=== PATIENT | female | born 1970 | race Caucasian/White ===

== ENCOUNTER → 2019-12-20 10:45 | Outpatient (CLI) | payer MEDICARE, MEDICAID, SELFPAY ==
--- NOTE | 2019-12-20 10:48 | MM_ITS ---
PROCEDURE: MM DIG SCREENING MAMM BI W/CAD Digital Breast Tomosynthesis Included CLINICAL INDICATION: SCREENING There is no personal or family history of breast cancer. COMPARISON: [facility] DIGITAL MAMM-SCREEN BILATERAL from 07/12/2012 [facility] DIG MAMM-BILATERAL ADD VIEWS from 07/18/2012 [facility] DIG MAMM-SCREEN SHELLY from 09/03/2013 TECHNIQUE: Standard CC and MLO images and 3D Tomosynthesis was obtained. R2 CAD reviewed. FINDINGS: Moderate scattered fibroglandular densities are seen throughout both breasts. There is a benign-appearing calcification left breast. There is no suspicious lesion and no suspicious microcalcifications. IMPRESSION: Fibrofatty parenchyma with no suspicious lesions seen BI-RAD Category: 2 Benign Finding(s) FOLLOW-UP: 1YR 1 Year Follow-up (A letter has been sent to the patient regarding results of the study.) Dictated by: Dr. Zeferino Meade MD 12/24/2019 08:[address] Zeferino Meade MD in [place] 12/24/2019 08:16
== END ==
PROVIDERS: PCP Family Medicine; Visit Provider Family Medicine
DX: Z12.31 Encounter for screening mammogram for malignant neoplasm of breast (principal)
CPT/HCPCS: 77063; 77067

== ENCOUNTER → 2020-02-14 12:25 | Outpatient (CLI) | payer MEDICARE, MEDICAID, SELFPAY ==
--- NOTE | 2020-02-14 | CA_ITS ---
APPROVED REPORT Developing Machine Tender: CT Laterality: Bilateral Study Quality: Good Indications: DIZZINESS Risk Factors Hypertension: Diabetes Doppler Spectral Velocity Analysis ECA (R) 83.80/18.00 cm/s ECA (L) 78.80/15.40 cm/s dICA (R) 76.30/22.40 cm/s dICA (L) 91.80/33.40 cm/s Derrick (R) 98.00/39.70 cm/s Derrick (L) 89.90/36.00 cm/s pICA (R) 63.60/22.50 cm/s pICA (L) 51.30/19.80 cm/s dCCA (R) 78.60/21.70 cm/s dCCA (L) 89.10/29.10 cm/s pCCA (R) 125.10/22.30 cm/s pCCA (L) 108.00/22.30 cm/s Vert (R) 53.10/20.20 cm/s Vert (L) 63.40/23.10 cm/s ICA/CCA 1.30 ICA/CCA 1.00 Findings Duplex evaluation demonstrates stenosis of the right proximal internal carotid artery <20%. Duplex evaluation demonstrates stenosis of the left proximal internal carotid artery <20%. Duplex evaluation demonstrates antegrade flow of the bilateral Vertebral Arteries. Thyroid cysts noted. Conclusion Duplex evaluation demonstrates stenosis of the right proximal internal carotid artery <20%. Duplex evaluation demonstrates stenosis of the left proximal internal carotid artery <20%. Duplex evaluation demonstrates antegrade flow of the bilateral Vertebral Arteries. Thyroid cysts noted. Electronically signed by : Corey Gómez MD 02/14/2020 16:21:11
== END ==
PROVIDERS: PCP Family Medicine; Visit Provider Nurse Practitioner Family
DX: R42 Dizziness and giddiness (principal)
CPT/HCPCS: 93880

== ENCOUNTER → 2020-03-20 10:51 | Outpatient (CLI) | payer MEDICARE, MEDICAID, SELFPAY ==
--- NOTE | 2020-03-20 10:56 | US_ITS ---
PROCEDURE: US THYROID CLINICAL INDICATION: THYROID CYST COMPARISON: No exams were available for comparison FINDINGS: The right lobe is 4 x 1.4 by 1.5 cm. A 4 x 2 mm hypoechoic nodules present in the upper pole. The left lobe is 4 x 1.0 x 1.6 cm. A 5 mm cyst is present in the lower pole on the left. The isthmus is slightly thickened at 4 mm. IMPRESSION: Small bilateral thyroid nodules which are low level of suspicion for malignancy. 4 mm solid nodule in the right and 5 mm cyst on the left. Dictated by: Corey Gómez MD 03/20/2020 12:07 Corey Gómez MD in [place] 03/20/2020 12:07
== END ==
PROVIDERS: PCP Family Medicine; Visit Provider Nurse Practitioner Family
DX: E04.1 Nontoxic single thyroid nodule (principal)
CPT/HCPCS: 76536

== ENCOUNTER 2021-11-07 13:25 | Emergency (ER) | payer MEDICARE, MEDICAID, SELFPAY ==
[2021-11-07 14:00] VITALS: BP 145/82; PULSE 95; RESP 18; TEMP 37; O2SAT 96; BMI 35.0
--- NOTE | 2021-11-07 14:40 | HMH.EDUTC ---
[facility] Disposition Clinical Impression: Maxillary sinusitis, acute Qualifiers: Recurrence: non-recurrent Qualified Code(s): J01.00 - Acute maxillary sinusitis, unspecified Disposition: Home, Self-Care Condition on Discharge: Good Instructions: DI for Sinusitis Additional Instructions: Start antibiotic patient to take as ordered for a full length of time even if you feel better. Sinus infections do not get better overnight. It may take 2-3 days to notice much improvement so be sure to use conservative measures as discussed for symptoms. Flonase 1 spray each nostril daily to help with nasal congestion, sinus and ear pressure/information Increase fluids Humidifier/vaporizer as needed Tylenol and ibuprofen as needed for fever or pain. If symptoms do not improve or get worse return or be seen in the ER Follow-up with primary care this week Prescriptions: Fluticasone Propionate [Flonase 50mcg nasal spray 16gm] 1 spr NS DAILY 14 Days #9.9 ml Transmission Status: Pending to [facility] Azithromycin [Zithromax 250mg tab] 250 mg PO DIRECTED #6 tab Transmission Status: Pending to [facility] Referrals: Khurram Smith MD [Primary Care Provider] - Time of Disposition: 14:45 Medical Decision Making - Edilberto Inquiry Pt receiving controlled substance: No Vital Signs: 11/07/21 14:00 Temperature 98.6 F Temperature Source Oral Pulse Rate [Right Brachial] 95 H Respiratory Rate 18 Blood Pressure [Right Arm] 145/82 H Blood Pressure Mean [Right Arm] 103 Blood Pressure Source [Right Arm] Automatic Cuff Blood Pressure Position [Right Arm] Sitting 02 Sat by Pulse Oximetry 96 Oxygen Delivery Method Room Air [facility] HPI - General Chief complaint: Urgent Treatment Center Stated complaint: congestion Time Seen by Provider: 11/07/21 14:40 Mode of Arrival: Ambulatory Source of Information: Patient Limitations: No Limitations Description of Symptoms (Recalled from Triage Doc. by RN): PATEINT C/O CONGESTION AND SINUS PRESSURE X 1 WEEK HEENT Symptoms (Recalled from RN notes): Yes Resp Symptoms (Recalled from RN notes): No Skin Symptoms (Recalled from RN notes): No MS Symptoms (Recalled from RN notes): No Functional Status (Recalled from RN notes): WNL - History of Present Illness Provider Complaint: 51 yr old female presents for green nasal congestion,sinus pressure, sinus pain and cough since monday - Related Data Previous Rx's Medication Instructions Recorded Azithromycin [Zithromax 250mg 250 mg PO DIRECTED #6 tab 11/07/21 tab] Fluticasone Propionate [Flonase 1 spr NS DAILY 14 Days #9.9 ml 11/07/21 50mcg nasal spray 16gm] Allergies Allergy/AdvReac Type Severity Reaction Status Date / Time No Known Allergies Allergy Verified 11/07/21 14:14 - Worker's Comp Is this a Worker's Comp case?: No [facility] History - Hepatitis A Screen Attestation statement:: This patient has been screened for Hepatitis A risk factors. I have reviewed the patient's past medical history: Yes ROS Obtained: Yes Systems reviewed as appropriate & no additional complaints - Constitutional Constitutional: Reports system reviewed and no additional complaints, except as docu, Denies fever(s) - Eyes Eyes: Reports system reviewed and no additional complaints, except as docu, Denies dry eyes - ENT Ears, Nose, Mouth, and Throat: Reports system reviewed and no additional complaints, except as docu, Reports nasal congestion, Reports nasal discharge, Reports post nasal drip, Reports sinus pain, Reports sinus pressure - Cardiovascular Cardiovascular: Reports system reviewed and no additional complaints, except as docu, Denies chest pain - Respiratory Respiratory: Reports system reviewed and no additional complaints, except as docu, Reports cough - Gastrointestinal Gastrointestingal: Reports: system reviewed and no additional complaints, except as docu - Musculoskeletal Musculoskeletal: Repo
[2021-11-07 14:46] VITALS: BP 145/82; PULSE 95; RESP 18; TEMP 37; O2SAT 96
== END 2021-11-07 14:50 | disposition home or self-care (01) ==
PROVIDERS: Emergency Provider Nurse Practitioner Family; PCP Family Medicine
DX: J01.00 Acute maxillary sinusitis, unspecified (principal)
CPT/HCPCS: 99212; G0463

== ENCOUNTER → 2022-02-14 06:30 | Outpatient (CLI) | payer MEDICARE, MEDICAID, SELFPAY ==
[2022-02-14 18:47] LABS: Alanine Aminotransferase 38 U/L (12-78); Albumin Level 4.2 g/dl (3.5-5.0); Albumin/Globulin Ratio 1.6 (1.1-1.8); Alkaline Phosphatase 103 U/L (38-126); Aspartate Amino Transferase 34 U/L (14-36); Bilirubin,Total 0.3 mg/dl (0.2-1.3); Blood Urea Nitrogen 10 mg/dl (7-17); Calcium 9.9 mg/dl (8.4-10.2); Carbon Dioxide 29 mmol/L (22.0-30.0); Chloride 104 mmol/L (98-107); Chol/HDL Ratio 3.3 (1-3.5); Cholesterol 204 mg/dl (140-200); Estimated Glomerular Filt Rate 131 ml/min (>60); GFR (African American) 159 ML/MIN (>60); Globulin 2.7 g/dL (1.3-3.2); Glucose 158 mg/dl (74-100); HDL Cholesterol 61 mg/dl (40-60); Potassium 4.9 mmoL/L (3.5-5.1); Total Protein,Serum 6.9 g/dl (6.3-8.2); Triglycerides 153 mg/dl (30-150); VLDL Cholesterol 31 mg/dL (0-40)
[2022-02-14 19:18] LABS: Thyroid Stimulating Hormone 1.82 uIU/mL (0.465-4.68)
[2022-02-14 19:45] LABS: Anion Gap 11.9 mEq/L (5-15); Sodium 140 mmol/L (136-145)
[2022-02-14 20:19] LABS: Hemoglobin A1C 6.7 % (4.0-6.0)
[2022-02-18 09:46] LABS: Direct LDL Cholesterol 117 mg/dL (100-129)
== END ==
PROVIDERS: PCP Family Medicine; Visit Provider Family Medicine
DX: E11.9 Type 2 diabetes mellitus without complications (principal); I10 Essential (primary) hypertension; Z79.84 Long term (current) use of oral hypoglycemic drugs
CPT/HCPCS: 80053; 80061; 83036; 84443

== ENCOUNTER → 2022-03-30 11:57 | Outpatient (CLI) | payer MEDICARE, MEDICAID, SELFPAY ==
--- NOTE | 2022-03-30 12:01 | XR_ITS ---
FINAL REPORT CLINICAL HISTORY: Rt sided LBP x mos, NKT FINDINGS: LUMBAR SPINE AP and lateral views were obtained. There is no acute fracture or malalignment. There are minimal anterior osteophyte formations at L2-3, L3-4 and L4-5. Vertebrae are normal height. Prevertebral soft tissues are unremarkable. IMPRESSION: No acute bony abnormality. Reviewed, Interpreted and Dictated by Robbie Jones MD Transcribed by Karey Biggs Authenticated and [facility]
== END ==
PROVIDERS: PCP Family Medicine; Visit Provider Nurse Practitioner
DX: M54.50 Low back pain, unspecified (principal); M62.830 Muscle spasm of back
CPT/HCPCS: 72100

== ENCOUNTER → 2022-04-11 12:52 | Outpatient (CLI) | payer MEDICARE, MEDICAID, SELFPAY ==
--- NOTE | 2022-04-11 12:57 | US_ITS ---
FINAL REPORT CLINICAL HISTORY: survellience of thyroid nodules COMPARISON: March 20, 2020 FINDINGS: THYROID ULTRASOUND Sonographic images of the thyroid was obtained. The right lobe of the thyroid measures 4.4 x 1.6 x 1.5 cm. The left lobe of the thyroid measures 4.6 x 1.7 x 1.4 cm. There is a 4 mm cystic nodule with a small calcification, TI-RADS category 2. The isthmus measures 5 mm. IMPRESSION: Left thyroid nodule, TI-RADS 2. No recommended follow-up. Reviewed, Interpreted and Dictated by Navin Andrade III, MD Transcribed by Lynnette Flores Authenticated and [facility]
== END ==
PROVIDERS: PCP Family Medicine; Visit Provider Family Medicine
DX: E04.1 Nontoxic single thyroid nodule (principal)
CPT/HCPCS: 76536

== ENCOUNTER → 2022-09-07 09:58 | Outpatient (CLI) | payer MEDICARE, MEDICAID, SELFPAY ==
[2022-09-07 19:03] LABS: Basophils # 0.1 K/mm3 (0-0.2); Eosinophils # 0.3 K/mm3 (0.0-0.4); Eosinophils % 3.4 % (0.1-12.0); Hematocrit 42.3 % (37.0-47.0); Lymphocytes % 33.4 % (10-50); Mean Corpuscular HGB Conc 33.1 g/dL (31.8-35.4); Mean Corpuscular Hemoglobin 28.7 pg (27.0-31.2); Mean Corpuscular Volume 86.9 fl (81-99); Mean Platelet Volume 9.2 fl (7.4-10.4); Monocytes # 0.4 K/mm3 (0.1-1.0); Monocytes % 4.4 % (1.7-9.3); Neutrophils # 5.2 K/mm3 (1.8-7.8); Neutrophils % 57.9 % (37.0-80.0); Platelet Count 432 K/mm3 (142-424); Red Blood Count 4.86 M/mm3 (4.20-5.40); Red Cell Distribution Width 13.6 % (11.5-17.5); White Blood Count 8.9 K/mm3 (4.8-10.8)
[2022-09-07 19:58] LABS: Chloride 102 mmol/L (98-107); Sodium 138 mmol/L (136-145)
[2022-09-07 19:59] LABS: Potassium 4.2 mmoL/L (3.5-5.1)
[2022-09-07 20:01] LABS: Alanine Aminotransferase 32 U/L (12-78); Albumin Level 4.5 g/dl (3.5-5.0); Albumin/Globulin Ratio 1.6 (1.1-1.8); Alkaline Phosphatase 91 U/L (38-126); Anion Gap 14.2 mEq/L (5-15); Aspartate Amino Transferase 28 U/L (14-36); Bilirubin,Total 0.4 mg/dl (0.2-1.3); Blood Urea Nitrogen 12 mg/dl (7-17); Carbon Dioxide 26 mmol/L (22.0-30.0); Cholesterol 211 mg/dl (140-200); Estimated Glomerular Filt Rate 131 ml/min (>60); GFR (African American) 158 ML/MIN (>60); Globulin 2.9 g/dL (1.3-3.2); Total Protein,Serum 7.4 g/dl (6.3-8.2); Triglycerides 123 mg/dl (30-150); VLDL Cholesterol 25 mg/dL (0-40)
[2022-09-07 20:02] LABS: Calcium 9.4 mg/dl (8.4-10.2); Chol/HDL Ratio 3.2 (1-3.5); Glucose 165 mg/dl (74-100); HDL Cholesterol 65 mg/dl (40-60)
[2022-09-07 20:13] LABS: Direct LDL Cholesterol 114.69 mg/dL (100-129)
[2022-09-07 20:17] LABS: Creatinine,Urine Random 48 mg/dL (Not Estab.); Microalbumin < 6.000 mg/L (0-16.7)
[2022-09-07 20:37] LABS: 25-OH Vitamin D, Total 28.7 ng/mL (30-100)
[2022-09-07 21:05] LABS: Hemoglobin A1C 6.5 % (4.0-6.0)
[2022-09-07 21:11] LABS: Vitamin B12 522 pg/mL (239-931)
== END ==
PROVIDERS: PCP Nurse Practitioner; Visit Provider Nurse Practitioner
DX: E11.9 Type 2 diabetes mellitus without complications (principal); E78.5 Hyperlipidemia, unspecified; I10 Essential (primary) hypertension; J01.00 Acute maxillary sinusitis, unspecified; E55.9 Vitamin D deficiency, unspecified; Z79.84 Long term (current) use of oral hypoglycemic drugs
CPT/HCPCS: 80053; 80061; 82043; 82306; 82570; 82607; 83036; 85025

== ENCOUNTER 2023-02-18 12:53 | Emergency (ER) | payer MEDICARE, SELFPAY ==
[2023-02-18] VITALS (7 sets, daily range): BP systolic 146–182; BP diastolic 79–103; PULSE 74–94; RESP 16–20; TEMP 36.8–36.9; O2SAT 95–100; BMI 30.9
--- NOTE | 2023-02-18 12:46 | ECG_ITS ---
APPROVED REPORT Exam: Resting ECG HR:98 bpm ECG Measurements Heart Rate 98 AXES CO 167 P 35 QRSd 136 QRS 43 QT 341 T 27 QTc 397 Conclusion SINUS RHYTHM RIGHT BUNDLE BRANCH BLOCK [120+ ms QRS DURATION, UPRIGHT V1, 40+ ms S IN I/aVL/V4/V5/V6] ABNORMAL ECG UNCONFIRMED REPORT Electronically signed by : Raudel Mcnair MD 02/20/2023 14:06:27
--- NOTE | 2023-02-18 13:02 | XR_ITS ---
PROCEDURE INFORMATION: Exam: XR Chest Exam date and time: 02/18/2023 1:04 PM Age: 52 years old Clinical indication: Other: Chest pain in center of chest TECHNIQUE: Imaging protocol: Radiologic exam of the chest. Views: 1 view. COMPARISON: No relevant prior studies available. FINDINGS: Lungs: Unremarkable. No consolidation. Pleural spaces: Unremarkable. No pleural effusion. No pneumothorax. Heart/Mediastinum: Unremarkable. No cardiomegaly. Bones/joints: Unremarkable. IMPRESSION: No acute findings.
[2023-02-18 13:10] LABS: Basophils # 0.1 K/mm3 (0-0.2); Basophils % 0.4 % (0.1-2.0); Eosinophils # 0.3 K/mm3 (0.0-0.4); Eosinophils % 2.9 % (0.1-12.0); Hematocrit 43.8 % (37.0-47.0); Hemoglobin 15.2 g/dL (12.2-16.2); Lymphocytes # 3.5 K/mm3 (0.7-4.5); Lymphocytes % 30.5 % (10-50); Mean Corpuscular HGB Conc 34.6 g/dL (31.8-35.4); Mean Corpuscular Hemoglobin 29.9 pg (27.0-31.2); Mean Corpuscular Volume 86.4 fl (81-99); Mean Platelet Volume 6.9 fl (7.4-10.4); Monocytes # 0.4 K/mm3 (0.1-1.0); Monocytes % 3.4 % (1.7-9.3); Neutrophils # 7.1 K/mm3 (1.8-7.8); Neutrophils % 62.6 % (37.0-80.0); Platelet Count 352 K/mm3 (142-424); Red Blood Count 5.07 M/mm3 (4.20-5.40); Red Cell Distribution Width 12.9 % (11.5-17.5); White Blood Count 11.3 K/mm3 (4.8-10.8)
[2023-02-18 13:24] LABS: Alanine Aminotransferase 26 U/L (12-78); Albumin Level 5.2 g/dl (3.5-5.0); Albumin/Globulin Ratio 1.3 (1.1-1.8); Alkaline Phosphatase 96 U/L (38-126); Anion Gap 13.6 mEq/L (5-15); Aspartate Amino Transferase 30 U/L (14-36); Bilirubin,Total 0.5 mg/dl (0.2-1.3); Blood Urea Nitrogen 12 mg/dl (7-17); Calcium 10.3 mg/dl (8.4-10.2); Carbon Dioxide 28 mmol/L (22.0-30.0); Chloride 100 mmol/L (98-107); Creatinine Clearance Estimated 141 mL/min (50-200); Estimated Glomerular Filt Rate 106 ml/min (>60); GFR (African American) 128 ML/MIN (>60); Globulin 3.9 g/dL (1.3-3.2); Glucose 150 mg/dl (74-100); Potassium 3.6 mmoL/L (3.5-5.1); Sodium 138 mmol/L (136-145); Total Protein,Serum 9.1 g/dl (6.3-8.2)
[2023-02-18 13:29] LABS: D-Dimer 0.54 ug/mL (0.0-0.5)
[2023-02-18 13:37] LABS: Troponin I < 0.01 ng/ml (0.00-0.034)
--- NOTE | 2023-02-18 13:49 | CT_ITS ---
PROCEDURE INFORMATION: Exam: CTA Chest With Contrast Exam date and time: 02/18/2023 2:15 PM Age: 52 years old Clinical indication: Other: Chest pain in center of chest; Additional info: Elevated d-dimer, chest pain TECHNIQUE: Imaging protocol: Computed tomographic angiography of the chest with contrast. Exam focused on the arteries. 3D rendering (Not supervised by radiologist): MIP and/or 3D reconstructed images were created by the technologist. Radiation optimization: All CT scans at this facility use at least one of these dose optimization techniques: automated exposure control; mA and/or kV adjustment per patient size (includes targeted exams where dose is matched to clinical indication); or iterative reconstruction. Contrast material: ISOVUE; Contrast volume: 70 ml; Contrast route: INTRAVENOUS (IV); REPORTING DATA: Count of CT and Cardiac NM exams in prior 12 months: This patient has received 0 known CTs and 0 known cardiac nuclear medicine studies in the 12 months prior to the current study. COMPARISON: CR XR CHEST PORTABLE 02/18/2023 1:04 PM FINDINGS: Pulmonary arteries: There is suboptimal opacification of pulmonary arteries due to contrast bolus timing. Aorta: Regions of atherosclerotic vascular calcification involving the aortic arch. Thyroid: Mildly enlarged thyroid gland. Lungs: Bilateral ground-glass regions of opacification. Findings nonspecific and may reflect interstitial lung disease. An acute inflammatory process could not be entirely excluded. Calcified granuloma right lower lobe Pleural spaces: Unremarkable. No pneumothorax. No pleural effusion. Heart: Unremarkable. No cardiomegaly. No pericardial effusion. Coronary arteries: Coronary artery calcification. Lymph nodes: Calcified right hilar and subcarinal adenopathy. Liver: Hepatic steatosis Spleen: Evidence of prior splenic granulomatous disease. Bones/joints: Thoracic spondylosis Soft tissues: Unremarkable. IMPRESSION: 1. Bilateral ground-glass regions of opacification. Findings nonspecific and may reflect interstitial lung disease. An acute inflammatory process could not be entirely excluded. 2. No large or central pulmonary embolus. Evaluation of the peripheral pulmonary arteries is limited. 3. Evidence of prior granulomatous disease.
--- NOTE | 2023-02-18 13:59 | PC.NURSE ---
PT ASSISTED TO BR
--- NOTE | 2023-02-18 14:16 | HMH.EDGENADL ---
Discharge Plan Disposition Patient Disposition: Home, Self-Care Condition: Good Prescriptions Prescriptions: No Action Advair HFA 115-21 mcg/actuation HFA aerosol inhaler 2 inh inhalation BID Patient Comments: INHALE 2 PUFFS BY MOUTH TWICE A DAY buspirone 15 mg tablet 15 mg PO BID Qty: 180 5RF montelukast 10 mg tablet 10 mg PO DAILY Qty: 30 11RF bupropion HCl 150 mg tablet extended release 24 hr 150 mg PO DAILY Qty: 30 2RF diazepam 5 mg tablet 5 mg PO TID PRN (Reason: anxiety) Qty: 90 2RF hydrochlorothiazide 12.5 mg tablet 12.5 mg PO DAILY Qty: 30 2RF albuterol sulfate 90 mcg/actuation HFA aerosol inhaler 1 inh IH QID cholecalciferol (vitamin D3) 125 mcg (5,000 unit) tablet 125 mcg PO DAILY Qty: 30 5RF metformin 500 mg tablet extended release 24 hr See Rx Instructions .ROUTE .COMPLEX Qty: 180 1RF Dose Instruction: TAKE 1 TABLET BY MOUTH TWICE DAILY Rx Instructions: TAKE 1 TABLET BY MOUTH TWICE DAILY azithromycin 250 mg tablet See Rx Instructions PO .COMPLEX Qty: 6 0RF Rx Instructions: For 250 mg dose pack: take 500 mg today (day 1), then 250 mg for 4 days (days 2-5) PO losartan 100 mg tablet See Rx Instructions .ROUTE .COMPLEX Qty: 90 0RF Dose Instruction: TAKE ONE TABLET BY MOUTH ONCE DAILY Rx Instructions: TAKE ONE TABLET BY MOUTH ONCE DAILY meloxicam 15 mg tablet See Rx Instructions .ROUTE .COMPLEX Qty: 30 2RF Dose Instruction: TAKE 1 TABLET ORALLY ONCE DAILY Rx Instructions: TAKE 1 TABLET ORALLY ONCE DAILY Referrals Follow up/Referrals: Audra Alvarez MD [Primary Care Provider] - See instructions Activity Restrictions/Add. Instructions Additional Instructions/Restrictions: Recommend that you continue to stay hydrated and eat regularly. Recommend that you follow up with your primary care provider or return to the Emergency Department should your symptoms worsen/persist or you develop any new concerning symptoms. You can take Tylenol, ibuprofen every 6 hours as needed for pain control. Plan to follow-up with your primary care provider on Monday. Clinical Impressions Clinical Impression: Chest pain Qualifiers: Chest pain type: unspecified Qualified Code(s): R07.9 - Chest pain, unspecified Discharge ED Provider: Alexandre Cochran I General Adult HPI General Chief complaint: Chest Pain Stated complaint: CHEST PAIN Time Seen by Provider: 02/18/23 12:55 Mode of Arrival: Ambulatory Limitations: No Limitations Description of Symptoms (Recalled from ER Triage Doc. by RN): PT REPORTS INTERMITTENT CHEST PRESSURE X 2 WEEKS, RADIATES ACROSS HER CHEST AND TO HER BACK. PAIN WORSE WITH MOVEMENT. BETTER WITH REST AND MELOXICAM. History of Present Illness HPI narrative: Patient is a 52-year-old female with history of hypertension, hyperlipidemia, type 2 diabetes as well as asthma, histoplasmosis who is presenting to the emergency department with several weeks, month history of midsternal chest pressure that worsened yesterday evening. History was conducted with the patient at bedside. 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 Reports that she is always picking up her grandkids, would have waxing and waning of her symptoms. She reports it is a midsternal pressure-like sensation. She denies any change with eating, denies any associated shortness of breath, difficulty breathing wheezing, chest tightness. Patient states that her symptoms slightly worsened yesterday evening, she attempted an albuterol inhaler without improvement in symptoms. Patient took Tylenol last night with improvement in symptoms. States that rest also helps symptoms, denies exertion worsening chest pain. Reports that on prior EKGs, has a history of right bundle branch block. Related Data Home Medications Medication Instructions Recorded Confirmed albuterol santo
--- NOTE | 2023-02-18 14:18 | PC.NURSE ---
PT RETURNED FROM CT
--- NOTE | 2023-02-18 15:09 | PC.NURSE ---
ED MD AT BEDSIDE TO UPDATE PT
== END 2023-02-18 15:22 | disposition home or self-care (01) ==
PROVIDERS: Emergency Provider Emergency Medicine; PCP Family Medicine
DX: R07.9 Chest pain, unspecified (principal); I10 Essential (primary) hypertension; E78.5 Hyperlipidemia, unspecified; E11.9 Type 2 diabetes mellitus without complications; J45.909 Unspecified asthma, uncomplicated
CPT/HCPCS: 71045; 71275; 80053; 84484; 85025; 85378; 93005; 99285; Q9967

== ENCOUNTER → 2023-03-07 07:31 | Outpatient (CLI) | payer MEDICARE, SELFPAY ==
--- NOTE | 2023-03-07 | CA_ITS ---
APPROVED REPORT Exam: Exercise Treadmill Technologist: Yokasta Benson, Ht: 5 ft 3 in Wt: 180 lbs BSA: 1.85 m2 HR: 82 bpm BP: 143/81 mmHg Rhythm: NSR, RBBB Medical History Medical History: HTN, Hyperlipidemia, Diabetes Medications: Diazepam,,,,, Losartan,,,,, Hydrochlorothiazide,,,,, Buspirone,,,,, Albuterol,,,,, Montelukast,,,,, MeLOXICAM,,,,, ADVAIR,,,,, Vit D3,,,,, AZITHROMYACIN,,,,, Metformin ER,,,,, Esomeprazole magnesium,,,,, Allergies: No known drug allergies Cardiac Risk Factors: HTN, Hyperlipidemia, Diabetes , FHX of CAD, Smoking Stress Test Details Test: Prashant HR Resting HR: 82 bpm Max Heart Rate (APMHR): 170 bpm Max HR Achieved: 171 bpm Target HR (85% APMHR): 145 bpm % of APMHR: 101 Recovery HR: 97 bpm HR response to stress: Normal HR response to stress BP Resting BP: 143.0/81 mmHg Max BP: 210/92 mmHg Recovery BP: 129.0/88.0 mmHg BP response to stress: Abnormal hypertensive response to stress. ECG Resting ECG: NSR, RBBB Stress ECG: No ST changes Arrhythmia: None Recovery ECG: No ST changes Recovery Arrhythmia: None Clinical Exercise duration: 09:13 min Highest Stage Achieved: Exercise capacity: 10.1 METs Overall Exercise Capacity for Age: Average Stress ECG Conclusion The patient was able to exercise for a total of 9 minutes, 13 seconds. She achieved a total of 10.1 METS. She has average exercise capacity compared to age and sex matched peers. She has normal HR, but exaggerated BP, response to exercise. MAX HR: 171 % OF PM: 101 MAX BP: 210/92 METS: 10.1 TEST STOPPED DUE TO: DYSPNEA LEG FATIGUE, DYSPNEA, CHEST BURNING NO SIGNIFICANT ST CHANGES NO ARRHYTHMIAS CONCLUSION Average exercise capacity. Exaggerated BP response. Unremarkable exercise stress test. Myoview images are reported separately. Test Summary REST . . . . . . . Standing REST 03:15 0.0 0.0 82 . 143/ 81 . . Stage 1 01:00 10.0 1.7 101 . . . . Stage 1 02:00 10.0 1.7 108 . . . . Stage 1 03:00 10.0 1.7 115 . 164/ 82 . . Stage 2 01:00 12.0 2.5 127 . . . . Stage 2 02:00 12.0 2.5 131 . . . . Stage 2 03:00 12.0 2.5 138 . 170/ 90 . . Stage 3 01:00 14.0 3.4 153 . . . . Stage 3 02:00 14.0 3.4 160 . . . . Stage 3 . . . . . . . Myoview Injected Stage 3 03:00 14.0 3.4 160 . 210/ 92 . . Stage 4 00:13 16.0 4.2 160 . . . Stop exercise at 09:13 RECOVERY 01:00 0.0 0.0 136 . . . . RECOVERY 02:00 0.0 0.0 115 . 167/ 83 . . RECOVERY 03:00 0.0 0.0 105 . 144/ 82 . . RECOVERY 04:00 0.0 0.0 108 . 144/ 82 . . RECOVERY 05:00 0.0 0.0 97 . 148/ 89 . . RECOVERY 05:31 0.0 0.0 100 . 129/ 88 . . Electronically signed by : Cinda Caraballo, 03/13/2023 00:02:29
--- NOTE | 2023-03-07 07:31 | NM_ITS ---
APPROVED REPORT Exam: Nuclear Stress Test Indication: DYSRHYTHMIA, HTN, DM, FM HX, C.P., SOB Patient Location: Outpatient Stress Tech: Yokasta Benson [place] Tech:Clary Carlson LUDIVINAThomas RT (R)(N)(M) Ht: 5 ft 3 in Wt: 175 lbs Bra Size: DD HR: 82 bpm BP: 143/81 mmHg BSA: 1.83 m2 TID: 1.05 BMI: 30.9 History: DYSRHYTHMIA, HTN, DM, FM HX, C.P., SOB Procedure: Patient exercised on Prashant protocol 9:13 minutes and sec, resting heart rate 82 bpm, resting blood pressure 143/81 mmHg, with exercise maximum heart rate achived was 171 bpm which is 101 % of the maximum predicted heart rate and blood pressure was 210/92 mmHg. Test was stopped due to FATIGUE. Patient denied any complaint of chest pain. Patient has Average exercise capacity, achieved 10.1 METs of workload on treadmill, the blood pressure response to exercise was Exaggerated. Cardiac Stress and Resting SPECT Images: Cardiac Stress and Resting SPECT images were obtained using technetium 99m Myoview 29.9 mCi stress and 10.93 mCi at rest. Resting and stress imaging in supine and prone positions demonstrate no evidence of fixed or reversible perfusion defects. Gated imaging demonstrates normal global and regional LV systolic function. LVEF is calculated at 64%. Conclusion: Exaggerated hypertensive BP response with exercise. No evidence of fixed or reversible perfusion defects. Gated imaging demonstrates normal global and regional LV systolic function. LVEF is calculated at 64%. Electronically signed by : Cinda Caraballo, 03/13/2023 00:04:54
== END ==
LOC: RAD 07:31
PROVIDERS: PCP Family Medicine; Visit Provider Family Medicine
DX: R07.9 Chest pain, unspecified (principal)
CPT/HCPCS: 78452; 93017; A9502

== ENCOUNTER → 2023-06-07 08:31 | Outpatient (CLI) | payer MEDICARE, SELFPAY ==
[2023-06-07 19:06] LABS: Basophils % 0.4 % (0.1-2.0); Eosinophils # 0.3 K/mm3 (0.0-0.4); Eosinophils % 2.7 % (0.1-12.0); Hematocrit 42.5 % (37.0-47.0); Hemoglobin 14.3 g/dL (12.2-16.2); Lymphocytes # 2.3 K/mm3 (0.7-4.5); Lymphocytes % 23.2 % (10-50); Mean Corpuscular HGB Conc 33.7 g/dL (31.8-35.4); Mean Corpuscular Hemoglobin 29.2 pg (27.0-31.2); Mean Corpuscular Volume 86.7 fl (81-99); Mean Platelet Volume 8.9 fl (7.4-10.4); Monocytes # 0.4 K/mm3 (0.1-1.0); Neutrophils % 69.7 % (37.0-80.0); Platelet Count 381 K/mm3 (142-424); Red Cell Distribution Width 13.3 % (11.5-17.5)
[2023-06-07 19:34] LABS: Alanine Aminotransferase 29 U/L (12-78); Albumin Level 4.4 g/dl (3.5-5.0); Albumin/Globulin Ratio 1.6 (1.1-1.8); Alkaline Phosphatase 91 U/L (38-126); Aspartate Amino Transferase 37 U/L (14-36); Bilirubin,Total 0.4 mg/dl (0.2-1.3); Blood Urea Nitrogen 10 mg/dl (7-17); Calcium 9.3 mg/dl (8.4-10.2); Carbon Dioxide 25 mmol/L (22.0-30.0); Chloride 103 mmol/L (98-107); Chol/HDL Ratio 3.3 (1-3.5); Cholesterol 224 mg/dl (140-200); Estimated Glomerular Filt Rate 131 ml/min (>60); GFR (African American) 158 ML/MIN (>60); Globulin 2.8 g/dL (1.3-3.2); Glucose 150 mg/dl (74-100); HDL Cholesterol 68 mg/dl (40-60); Sodium 137 mmol/L (136-145); Total Protein,Serum 7.2 g/dl (6.3-8.2); Triglycerides 103 mg/dl (30-150); VLDL Cholesterol 21 mg/dL (0-40)
[2023-06-07 19:45] LABS: Direct LDL Cholesterol 130.07 mg/dL (100-129)
[2023-06-07 20:04] LABS: Thyroid Stimulating Hormone 1.31 uIU/mL (0.465-4.68)
[2023-06-07 20:23] LABS: Vitamin B12 727 pg/mL (239-931)
== END ==
PROVIDERS: PCP Family Medicine; Visit Provider Nurse Practitioner
DX: E11.9 Type 2 diabetes mellitus without complications (principal); E78.5 Hyperlipidemia, unspecified; I10 Essential (primary) hypertension; J30.9 Allergic rhinitis, unspecified; J01.00 Acute maxillary sinusitis, unspecified; Z79.84 Long term (current) use of oral hypoglycemic drugs
CPT/HCPCS: 80053; 80061; 82607; 83036; 84443; 85025

== ENCOUNTER 2024-07-13 12:46 | Emergency (ER) | payer SELFPAY ==
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
[2024-07-13 14:35] VITALS: BP 114/72; PULSE 84; RESP 20; TEMP 36.7; O2SAT 98; BMI 33.8
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
[2024-07-13 15:20] VITALS: BP 114/72; PULSE 84; RESP 20; TEMP 36.7; O2SAT 98
== END 2024-07-13 15:24 | disposition home or self-care (01) ==
PROVIDERS: Emergency Provider Nurse Practitioner; PCP Family Medicine
DX: M79.602 Pain in left arm (principal); V87.7XXA Person injured in collision between other specified motor vehicles (traffic), initial encounter
CPT/HCPCS: 73060; 73090; 73110; 73130; 99213; G0381

== ENCOUNTER 2024-11-05 16:20 | Outpatient (CLI) | payer MEDICARE, SELFPAY ==
[2024-11-05 18:39] LABS: Basophils % 0.4 % (0.1-2.0); Eosinophils # 0.3 Kmm3 (0.0-0.4); Eosinophils % 2.5 % (0.1-12.0); Hemoglobin 13.9 g/dL (12.2-16.2); Lymphocytes # 3.8 K/mm3 (0.7-4.5); Lymphocytes % 36.2 % (10-50); Mean Corpuscular HGB Conc 34.8 g/dL (31.8-35.4); Mean Corpuscular Hemoglobin 29.1 pg (27.0-31.2); Mean Corpuscular Volume 83.9 fl (81-99); Monocytes # 0.5 K/mm3 (0.1-1.0); Monocytes % 4.8 % (1.7-9.3); Neutrophils # 5.9 K/mm3 (1.8-7.8); Neutrophils % 55.8 % (37.0-80.0); Nucleated Red Blood Cells # 0 10^3/uL; Nucleated Red Blood Cells % 0 %; Platelet Count 341 K/mm3 (142-424); Red Blood Count 4.77 M/mm3 (4.20-5.40); Red Cell Distribution Width 12.4 % (11.5-17.5); Red Cell Distribution Width-SD 37.5 fL; White Blood Count 10.5 K/mm3 (4.8-10.8)
[2024-11-05 19:56] LABS: Alanine Aminotransferase 21 U/L (12-78); Albumin Level 4.5 g/dl (3.5-5.0); Albumin/Globulin Ratio 1.7 (1.1-1.8); Alkaline Phosphatase 82 U/L (38-126); Anion Gap 11.8 mEq/L (5-15); Aspartate Amino Transferase 24 U/L (14-36); Bilirubin,Total 0.6 mg/dl (0.2-1.3); Blood Urea Nitrogen 9 mg/dl (7-17); Calcium 9.5 mg/dl (8.4-10.2); Carbon Dioxide 26 mmol/L (22.0-30.0); Chloride 104 mmol/L (98-107); Estimated Glomerular Filt Rate 130 ml/min (>60); GFR (African American) 157 ML/MIN (>60); Globulin 2.6 g/dL (1.3-3.2); Glucose 117 mg/dl (74-100); Potassium 3.8 mmoL/L (3.5-5.1); Sodium 138 mmol/L (136-145); Total Protein,Serum 7.1 g/dl (6.3-8.2)
[2024-11-05 20:22] LABS: Thyroid Stimulating Hormone 0.83 uIU/mL (0.465-4.68)
[2024-11-05 21:44] LABS: Vitamin B12 357 pg/mL (239-931)
== END 2024-11-05 23:59 | disposition home or self-care (01) ==
LOC: LAB.DROPOF 11-07 13:18
PROVIDERS: PCP Family Medicine; Visit Provider Family Medicine
DX: E11.9 Type 2 diabetes mellitus without complications (principal); R53.83 Other fatigue
CPT/HCPCS: 80053; 82607; 84443; 85025

== ENCOUNTER 2024-12-18 12:28 | Outpatient (CLI) | payer MEDICARE, SELFPAY ==
--- NOTE | 2024-12-18 13:30 | MM_ITS ---
PROCEDURE INFORMATION: Exam: MG Bilateral Screening 3D Mammography Exam date and time: 12/18/2024 1:09 PM Age: 54 years old Clinical indication: Screening exam. TECHNIQUE: Imaging protocol: Bilateral Screening tomosynthesis and 2D mammography including computer-aided detection (CAD) when performed. COMPARISON: 1. MG MM DIG SCREENING MAMM BI W/CAD 12/20/2019 10:52 AM 2. MG DMSB DIG MAMM-SCREEN SHELLY 09/03/2013 9:41 AM FINDINGS: MAMMOGRAPHY: Breast composition: There are scattered areas of fibroglandular density. Mass: No suspicious masses. Architectural distortion: None. Calcifications: No suspicious calcifications. Asymmetric density: None. Skin thickening: None. Axillary adenopathy: None. IMPRESSION: No mammographic evidence of malignancy. Annual screening is recommended unless otherwise clinically indicated. ASSESSMENT: BI-RADS Category 1: Negative.
== END 2024-12-18 23:59 | disposition home or self-care (01) ==
LOC: RAD 12:29
PROVIDERS: PCP Family Medicine; Visit Provider Family Medicine
DX: Z12.31 Encounter for screening mammogram for malignant neoplasm of breast (principal); R92.323 Mammographic fibroglandular density, bilateral breasts; N60.19 Diffuse cystic mastopathy of unspecified breast
CPT/HCPCS: 77063; 77067

== ENCOUNTER 2025-04-17 10:42 | Outpatient (CLI) | payer MEDICARE, SELFPAY ==
[2025-04-17 16:21] LABS: Hematocrit 43.0 % (37.0-47.0); Hemoglobin 15.0 g/dL (12.2-16.2); Immature Granulocytes % 0.2 %; Mean Corpuscular HGB Conc 34.9 g/dL (31.8-35.4); Mean Corpuscular Hemoglobin 29.5 pg (27.0-31.2); Mean Corpuscular Volume 84.6 fl (81-99); Nucleated Red Blood Cells % 0 %; Platelet Count 365 K/mm3 (142-424); Red Blood Count 5.08 M/mm3 (4.20-5.40); Red Cell Distribution Width-SD 38.0 fL; White Blood Count 8.2 K/mm3 (4.8-10.8)
[2025-04-17 18:55] LABS: Alanine Aminotransferase 19 U/L (12-78); Albumin Level 4.5 g/dl (3.5-5.0); Albumin/Globulin Ratio 1.7 (1.1-1.8); Alkaline Phosphatase 102 U/L (38-126); Anion Gap 17.4 mEq/L (5-15); Aspartate Amino Transferase 23 U/L (14-36); Bilirubin,Total 0.7 mg/dl (0.2-1.3); Blood Urea Nitrogen 11 mg/dl (7-17); Calcium 9.6 mg/dl (8.4-10.2); Carbon Dioxide 25 mmol/L (22.0-30.0); Chloride 101 mmol/L (98-107); Cholesterol 235 mg/dl (140-200); Creatinine,Serum 0.70 mg/dl (0.52-1.04); Estimated Glomerular Filt Rate 88 ml/min (>60); GFR (African American) 106 ML/MIN (>60); Globulin 2.7 g/dL (1.3-3.2); Glucose 137 mg/dl (74-100); HDL Cholesterol 66 mg/dl (40-60); Potassium 4.4 mmoL/L (3.5-5.1); Sodium 139 mmol/L (136-145); Total Protein,Serum 7.2 g/dl (6.3-8.2); Triglycerides 109 mg/dl (30-150)
[2025-04-17 19:33] LABS: Hemoglobin A1C 5.9 % (4.0-6.0)
[2025-04-17 19:42] LABS: Hepatitis C Ab Qual. W/ RFX NEGATIVE (Negative)
[2025-04-19 08:13] LABS: Hepatitis B Surface Antigen Negative (Negative)
== END 2025-04-17 23:59 | disposition home or self-care (01) ==
LOC: LAB.DROPOF 04-18 02:41
PROVIDERS: PCP Nurse Practitioner Family; Visit Provider Nurse Practitioner Family
DX: E78.5 Hyperlipidemia, unspecified (principal); E11.9 Type 2 diabetes mellitus without complications; I10 Essential (primary) hypertension; Z11.59 Encounter for screening for other viral diseases
CPT/HCPCS: 80053; 80061; 82043; 82570; 83036; 85025; 86803; 87340; 87389